=== PATIENT | male | born 1950 | race Caucasian/White ===

== ENCOUNTER 2023-04-10 18:04 | Inpatient (IN) | payer OTHER ==
[~2023-04-10] VITALS: Ht 162.6 cm; Wt 68.5 kg
--- NOTE | 2023-04-10 18:30 | NUR ---
PATIENT INCREASINGLY AGITATED. WALKING AROUND
[2023-04-10] MEDS ORDERED: diphenhydrAMINE HCL 50 MG/ML VIAL ONE (18:38)
[2023-04-10] MEDS ORDERED: OLANZAPINE 10 MG VIAL IM ONE ×2 (18:39→19:00)
[2023-04-10] MEDS ORDERED: diphenhydrAMINE HCL 50 MG/ML VIAL IM ONE (19:00)
--- NOTE | 2023-04-10 19:15 | NUR ---
COVID SWAB DONE AND SENT TO LAB
--- NOTE | 2023-04-10 19:35 | NUR ---
PT NOTED TO BE VERY HARD OF HEARING. 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
[2023-04-10 19:39] LABS: BASOPHILS # (AUTO) 0.1 K/uL (0.0-0.2); BASOPHILS % (AUTO) 0.8 % (0.0-2.0); EOSINOPHILS % (AUTO) 2.9 % (0.0-6.0); HEMATOCRIT 45 % (39-51); LYMPHOCYTES # (AUTO) 1.8 K/uL (0.8-4.8); LYMPHOCYTES % (AUTO) 21.9 % (20.0-44.0); MEAN CORPUSCULAR HGB CONC 33 g/dl (31.0-36.0); MEAN CORPUSCULAR VOLUME 92 fL (80-96); MONOCYTES # (AUTO) 0.7 K/uL (0.1-1.30); MONOCYTES % (AUTO) 8.8 % (2.0-12.0); NEUTROPHILS # (AUTO) 5.4 K/uL (1.8-8.9); NEUTROPHILS % (AUTO) 65.6 % (43.0-81.0); PLATELET COUNT (AUTO) 233 K/uL (150-450); RED BLOOD CELL COUNT(AUTO) 4.89 MIL/uL (4.5-6.0); WHITE BLOOD COUNT (AUTO) 8.2 K/uL (4.3-11.0)
[2023-04-10 19:46] LABS: CARBON DIOXIDE 26 mmol/L (21-32); CHLORIDE 104 mmol/L (98-107); GLUCOSE 97 mg/dL (74-106); POTASSIUM 4.1 mmol/L (3.5-5.1); SODIUM SERUM 137 mmol/L (136-145); UREA NITROGEN, BLOOD 17 mg/dL (7-18)
--- NOTE | 2023-04-10 20:55 | NUR ---
URINE SAMPLE COLLECTED AND SENT TO LAB
[2023-04-10 21:51] LABS: BILIRUBIN,URINE NEGATIVE (NEGATIVE); COLOR,URINE YELLOW (YELLOW); LEUKOCYTE ESTERASE ,URINE NEGATIVE (NEGATIVE); NITRITE, URINE NEGATIVE (NEGATIVE); PH,URINE 6.5 (5.0-8.0); PROTEIN,URINE NEGATIVE (NEGATIVE); UGLUCOSE NEGATIVE (NEGATIVE); UROBILINOGEN,URINE 0.2 EU/dL (0.2)
[2023-04-10 22:59] LABS: ALBUMIN 3.7 g/dL (3.4-5.0); ALKALINE PHOSPHATASE 94 U/L (46-116); TOTAL PROTEIN, SERUM 7.3 g/dL (6.4-8.2)
[2023-04-10 23:55] LABS: BILIRUBIN,TOTAL 0.2 mg/dL (0.2-1.0)
[2023-04-10 23:56] LABS: ALANINE AMINOTRANSFERASE 14 U/L (12-78); ALCOHOL, BLOOD < 3 mg/dL (0-0); ASPARTATE AMINOTRANSFERASE 27 U/L (15-37)
[2023-04-11] MEDS ORDERED: HALOPERIDOL LACTATE INJ 5 MG/ML VIAL IM ONE (00:30)
[2023-04-11] MEDS ORDERED: LORAZEPAM INJ 2 MG/ML VIAL IM ONE ×3 (00:30→12:30)
[2023-04-11] MEDS ORDERED: HALOPERIDOL LACTATE INJ 5 MG/ML VIAL ONE (00:42)
[2023-04-11] MEDS ORDERED: LORAZEPAM INJ 2 MG/ML VIAL ONE ×3 (00:43→12:30)
--- NOTE | 2023-04-11 07:40 | NUR ---
Patient AOx4, able to express his concerns. patient is in bed, sleeping easily aroused, no signs of distress. Discussed plan of care, patient verbalized agreement. All safety precautions taken.
--- NOTE | 2023-04-11 08:10 | NUR ---
Misael Kianna/ [phone]. l/m to call back.
--- NOTE | 2023-04-11 08:43 | NUR ---
GEOMETRICIAN AT BED SIDE
--- NOTE | 2023-04-11 09:40 | NUR ---
SW Consult: SW attempted to meet with patient. Patient appeared alert and oriented x2 (self,place). Pt appeared irritable and agitated. He was uncooperative with this health technical writer and was yelling stating that he would want to return back home to his Kianna ([phone]). He was restricted with his answers and stated "I do not give you further information". SW contacted pt's Kianna ([phone]) to gather collateral and had concerns of pt to return back home and feels unsafe due to his behavior. SW attempted to speak to further about dc plan and she was agitated yelling. SW will discuss with treatment team.
--- NOTE | 2023-04-11 12:24 | NUR ---
CALLED NURSING SUP REGARDING PT BED
--- NOTE | 2023-04-11 12:48 | NUR ---
Patient AOx3, able to express his concerns. Patient states he wants to go home with his . Discussed plan of care, patient verbalized agreement, states he will go back to sleep, to wake him up if comes by.
[2023-04-11] MEDS ORDERED: MEMA5TAB42 PO (13:55)
[2023-04-11] MEDS ORDERED: QUET50TA79 PO (13:55)
[2023-04-11] MEDS ORDERED: DONE10TA44 PO (13:55)
[2023-04-11] MEDS ORDERED: BUSP10TA3 PO (13:55)
--- NOTE | 2023-04-11 14:21 | NUR ---
ROOM 213 A
[2023-04-11] MEDS ORDERED: ESCI10TA PO (14:23)
--- NOTE | 2023-04-11 15:16 | NUR ---
REPORT GIVEN TO NURSE YOU FOR GRAY
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
--- NOTE | 2023-04-11 15:51 | NUR ---
LIZZIE Initial Discharge Note: Patient currently resides at home with located at [address] [place] [address]; ([phone]). LIZZIE will contact pt's Kianna ([phone]) to discuss treatment/discharge plan. LIZZIE will work with the MD, family, and treatment team.
--- NOTE | 2023-04-11 15:51 | NUR ---
Treatment Plan: Pt unable to comprehend and refused to sign.
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
[2023-04-11 16:00] VITALS: BP 145/79
[2023-04-11] MEDS ORDERED: TEMAZEPAM 7.5 MG CAPSULE PO PRN (16:00)
[2023-04-11] MEDS ORDERED: MAGNESIUM HYDROXIDE 30 ML UDC PO PRN (16:00)
[2023-04-11] MEDS ORDERED: ACETAMINOPHEN 325 MG TABLET PO PRN (16:00)
[2023-04-11] MEDS ORDERED: BLOOD SUGAR DIAGNOSTIC 1 EACH STRIP IN ONE (16:00)
[2023-04-11] MEDS ORDERED: MAG HYDROX/AL HYDROX/SIMETH 30 ML UDC PO PRN (16:00)
--- NOTE | 2023-04-11 16:25 | NUR ---
RN- NOTES SPOKE TO MONICA RUBIO, AND DAUGHTER ELIOT MACHUCA ([phone]) ABOUT PATIENT ADMISSION TO [facility]. ALL QUESTIONS ANSWERED AND INFORMATION PROVIDED. WILL BRING POA PAPERWORK TOMORROW.
--- NOTE | 2023-04-11 18:36 | NUR ---
RN CLOSING NOTES PT SLEEPING IN BED. WENT TO RESTROOM ONCE. DID NOT EAT DINNER. AMBULATORY WITH UNSTEADY GAIT. BREATHING EVEN AND NONLABORED. ALERT/ORIENTED X2, GUARDED, SUSPICIOUS, ANXIOUS. DENIES SI/HI AT THIS TIME. WILL CONTINUE TO MONITOR Q 15 MINUTES FOR SAFETY AND BEHAVIOR. FALL SAFETY MEASURES IN PLACED. WILL ENDORSE TO NEXT SHIFT.
--- NOTE | 2023-04-11 19:34 | NUR ---
EMPLOYMENT SERVICE SPECIALIST NOTE: RECEIVED PATIENT ASLEEP IN BED.BREATHING NON-LABORED WITH EQUAL RISE AND FALL OF THE CHEST.RESIDENT IS DISPLAYING NO S/S OF APPARENT DISTRESS. PATIENT IS ALERT AND ORIENTED X2,GUARDED, SUSPICIOUS,ANXIOUS. DENIES SI/HI AT THIS TIME. NO C/O PAIN OR DISCOMFORT.ALL NEEDS ANTICIPATED AND ATTENDED TO. WILL CONTINUE TO MONITOR [id number] FOR SAFETY AND BEHAVIOR WITH THE HELP OF THE STAFF. FALL SAFETY PRECAUTION IN PLACED. BED IN LOWEST,LOCKED POSITION WITH SIDERAILS UP X2.
[2023-04-11 19:40] VITALS: BP 138/69
[2023-04-12] MEDS: clonazePAM 0.5 MG TABLET PO PRN ×3 (07:55→19:39)
--- NOTE | 2023-04-12 07:56 | NUR ---
RN-NOTES NOTED PATIENT PACING IN AND OUT IN HIS ROOM FOCUS ON GOING HOME,AGITATED WHEN REDIRECTED, AND KLONOPIN 0.5MG P.O GIVEN PRN ORDER. WILL CONT. MONITORING FOR SAFETY AND BEHAVIOR.
[2023-04-12 08:00] VITALS: BP 132/76
--- NOTE | 2023-04-12 09:46 | NUR ---
RN-NOTES PATIENT NOTED PACING IN THE HALLWAY,VERY ANXIOUS, SCREAMING AND YELLING AT STAFF FOCUS ON GOING HOME.REDIRECTED PATIENT BUT PATIENT GETS AGITATED. DR. FIERRO MADE AWARE WITH T.O ORDER OF ZYPREXA 10MG IM ONCE. NOTED AND CARRIED OUT.
[2023-04-12] MEDS ORDERED: OLANZAPINE 10 MG VIAL IM ONE (10:00)
--- NOTE | 2023-04-12 12:17 | NUR ---
LIZZIE Family Contact: LIZZIE spoke with pt's Kianna ([phone]) and daughter in law Cee ([phone]). Kianna is the DPOA and will drop of the documents today. Both shared that pt has been dx with Alzheimer and it has been two years of his dx. They stated that pt has been undermedicated by his psych. He has been aggressive and this has been his first episode. Pt has history of drug abuse. He has been smoking marijuana, opiates, alcohol, and has been using mushrooms. Ideally, they would want the pt to stay at the hospital 14 days to be stabilized before coming back home or they would want pt to go to a nursing facility. LIZZIE explained that pt's insurance might not approve this but this bond underwriter will attempt with insurance and if this does not work LZIZIE will provide options. Addendum: 04/12/23 at 1220 by LIZZIE KENDRICK LIZZIE shared this information with Dr. Carney. Family requested for Dr. Carney to contact.
--- NOTE | 2023-04-12 12:19 | NUR ---
UR CONTACT: SW contacted pt's case advocate Sharon ([phone]) to request auth and requested if she may be able to help with placement. SW waiting for a call back.
--- NOTE | 2023-04-12 12:21 | NUR ---
Social Work Note/Substance Abuse Intervention: Patient was provided with a brief substance abuse intervention and referred to [facility] ([phone]), [facility] ([phone]), and [facility] ([phone]) for drinking alcohol, abuse opiates, mushrooms, and marijuana.
--- NOTE | 2023-04-12 12:34 | NUR ---
RN-NOTES PATIENT IS VERY ANXIOUS, SCREAMING AND YELLING BANGING HIS BOTH HANDS ON THE TABLE WANTED TO GO HOME.REDIRECTED PATIENT ,KLONOPIN 0.5MG P.O GIVEN PRN ORDER
[2023-04-12] MEDS ORDERED: QUETIAPINE FUMARATE 25 MG TABLET PO SCH (13:30)
--- NOTE | 2023-04-12 13:41 | NUR ---
RN-NOTES RECEIVED T.O ORDER FROM DR. MACIAS TO D/C SEROCECILLEL ORDER AND ORDERED ZYPREXA 2.5MG P.O BID. ALSO ORDERED FAMILY CAN VISIT OUTSIDE VISITING HOURS. NOTED AND CARRIED OUT.
[2023-04-12] MEDS: DIVALPROEX SODIUM 125 MG CAP.SPRINK PO SCH ×2 (14:04→16:43)
--- NOTE | 2023-04-12 15:29 | NUR ---
UR CONTACT: Per intake, pt authorized until Sunday 04/15 and will require clinicals sent on 04/15. JOHN VERDIN P:[phone] F:[phone] LIZZIE left a detailed voicemail to help with placement.
[2023-04-12] MEDS: OLANZAPINE 2.5 MG TABLET PO SCH (16:43)
[2023-04-12] MEDS: MEMANTINE HCL 5 MG TABLET PO SCH (17:11)
[2023-04-12] MEDS: DONEPEZIL 5 MG TABLET PO SCH (17:11)
--- NOTE | 2023-04-12 18:03 | NUR ---
RN-NOTES PATIENT IS VISIBLE IN THE UNIT A/OX1 EPISODE OF PACING IN THE HALLWAY ,FOCUS ON GOING HOME,CONFUSED,DISORIENTED ,NEEDS FREQUENT REDIRECTIONS AND REORIENTATION. PATIENT IS EASILY ANGRY AND IRRITABLE. COMPLIANT WITH MEDICATIONS. AMBULATORY WITH STEADY GAIT.ALL NEEDS ATTENDED AND ANTICIPATED. WILL CONT. MONITORING FOR SAFETY AND BEHAVIOR. WILL ENDORSE TO INCOMING SHIFT FOR CONTINUITY OF CARE.
--- NOTE | 2023-04-12 19:40 | NUR ---
RN NOTES: ANXIETY PT.ANXIOUS RESTLESS PARANOID,HYPERVERBAL,YELLING SCREAMING NONREDIRECTABLE NEEDS FREQUENTLY REDIECTIONS, PRN KLNOPIN 0.5 MG PO GIVEN PER PT. REQUEST,WILL CONTINUE TO MONITOR.
[2023-04-12 20:00] VITALS: BP 130/74
--- NOTE | 2023-04-12 20:29 | NUR ---
RN NOTES :PATIENT WALKING AROUND THE UNIT,AWAKE ALERT A/OX1-2 . NO S/SX OF ACUTE DISTRESS NOTED ,CONFUSED, FORGETFUL ,DISHELVED,PARNOID ,ANXIOUS, EASILY AGITATED,HYPERVERBAL,YELLING LOUD , DELUSIONAL , COOPERTIVE/UNCOOPERTIVE AT TIMES, PARANOID ,NEEDS FREQUENTLY REDIRECTIONS, ENCOURAGED TO VERBALIZED ANY FEELING OR CONCERN ,SAFETY PRECAUTIONS MAINTAINED. WILL CONTINUE TO MONITOR Q15MIN ROUNDS FOR SAFETY.
[2023-04-13] MEDS: clonazePAM 0.5 MG TABLET PO PRN (07:55)
--- NOTE | 2023-04-13 07:55 | NUR ---
RN-NOTES NOTED PATIENT PACING IN AND OUT IN HIS ROOM YELLING FOCUS ON GOING HOME,AGITATED WHEN REDIRECTED, AND KLONOPIN 0.5MG P.O GIVEN PRN ORDER. WILL CONT. MONITORING FOR SAFETY AND BEHAVIOR.
[2023-04-13 08:00] VITALS: BP 130/76
[2023-04-13] MEDS: OLANZAPINE 2.5 MG TABLET PO SCH ×2 (08:25→16:40)
[2023-04-13] MEDS: DIVALPROEX SODIUM 125 MG CAP.SPRINK PO SCH ×3 (08:25→16:40)
--- NOTE | 2023-04-13 09:20 | NUR ---
RN-NOTES RECEIVED T.PO ORDER FROM DR. MACIAS TO CHANGE KLONOPIN 0.5MG DOSE TO 1MG P.O Q4HR PRN. NOTED AND CARRIED OUT.
[2023-04-13] MEDS ORDERED: clonazePAM 1 MG TABLET PO PRN (09:30)
--- NOTE | 2023-04-13 11:45 | NUR ---
RN-NOTES NOTED PATIENT VERY ANXIOUS,YELLING AND BANGING TABLES WITH BOTH HAND,STATED " I WANT TO GO HOME TO MY " REDIRECTED AND REASSURED PATIENT . KLONOPIN 1MG P.O GIVEN PRN ORDER. WILL CONT. MONITORING FOR SAFETY AND BEHAVIOR.
--- NOTE | 2023-04-13 12:45 | NUR ---
RN-NOTES PATIENT IN THE DAY ROOM PARTICIPATING WITH THE GROUP ACTIVITIES,CALM,NO ACUTE DISTRESS NOTED.
[2023-04-13 16:00] VITALS: BP 129/74
[2023-04-13] MEDS: MEMANTINE HCL 5 MG TABLET PO SCH (17:21)
[2023-04-13] MEDS: DONEPEZIL 5 MG TABLET PO SCH (17:21)
--- NOTE | 2023-04-13 19:39 | NUR ---
RN NOTES :PATIENT RESTING IN ROOM, AND FREQUENTLY COMING BACK TO NURSE STATION KEEP ASKING WHEN I AM GOING TO HOME ,REDIRECT PATIENT BUT PT.A/OX1 ,CONFUSED, FORGETFUL ,DISHELVED,PARNOID ,ANXIOUS, EASILY AGITATED,HYPERVERBAL,YELLING LOUD , DELUSIONAL , COOPERTIVE/UNCOOPERTIVE AT TIMES,NEEDS FREQUENTLY REDIRECTIONS, ENCOURAGED TO VERBALIZED ANY FEELING OR CONCERN ,SAFETY PRECAUTIONS MAINTAINED. WILL CONTINUE TO MONITOR Q15MIN ROUNDS FOR SAFETY.
[2023-04-13 20:00] VITALS: BP 142/71
--- NOTE | 2023-04-14 07:23 | NUR ---
RN NOTES: REFUSED SHOWER AND SKIN ASSESSMENT PT. REFUSED FULL BODY SKIN ASSESSMENT, PHOTOS TAKEN AND PT.REFUSED SHOWER ,CHANGING TO THE HOSPITAL GOWN , PT.BEHAVIOR VERY UNCOOPERATIVE PARANOID, AGGRESSIVE , UNPERDICTABLE AT THIS TIME . PER PT. STATES LIVE ME ALONE .I AM OK .
[2023-04-14 08:00] VITALS: BP 155/87
[2023-04-14] MEDS: DIVALPROEX SODIUM 125 MG CAP.SPRINK PO SCH ×3 (08:12→17:07)
[2023-04-14] MEDS: OLANZAPINE 2.5 MG TABLET PO SCH ×2 (08:12→17:07)
[2023-04-14 16:00] VITALS: BP 161/80
[2023-04-14] MEDS: MEMANTINE HCL 5 MG TABLET PO SCH (17:07)
[2023-04-14] MEDS: DONEPEZIL 5 MG TABLET PO SCH (17:07)
--- NOTE | 2023-04-14 18:39 | NUR ---
RN- CLOSING NOTES PATIENT AWAKE, RESTING IN BED, BREATHING EVEN AND NON LABORED WITH NO S/S OF DISTRESS. PATIENT IS COOPERATIVE, GUARDED, ANXIOUS, AGGRESSIVE, RESTLESS, SUSPICIOUS, EASILY AGITATED, ISOLATIVE, AND PERSEVERATING ON GOING HOME. PATIENT IS MEDICATION COMPLIANT. DENIES SI/HI AT THIS TIME. WILL CONTINUE TO MONITOR Q 15 MINUTES FOR SAFETY AND BEHAVIOR.
[2023-04-14 19:31] VITALS: BP 120/71
--- NOTE | 2023-04-15 06:30 | NUR ---
RN- CLOSING NOTES PATIENT ASLEEP IN BED, BREATHING EVEN AND NON LABORED WITH NO S/S OF DISTRESS. PATIENT IS COOPERATIVE, GUARDED, ANXIOUS, SUSPICIOUS, ISOLATIVE, AND PERSEVERATING ON GOING HOME. PATIENT IS MEDICATION COMPLIANT. DENIES SI/HI AT THIS TIME. WILL CONTINUE TO MONITOR Q 15 MINUTES FOR SAFETY AND BEHAVIOR.
[2023-04-15 08:00] VITALS: BP 134/77
[2023-04-15] MEDS: DIVALPROEX SODIUM 125 MG CAP.SPRINK PO SCH ×3 (08:20→17:51)
[2023-04-15] MEDS: OLANZAPINE 2.5 MG TABLET PO SCH ×2 (08:22→17:51)
--- NOTE | 2023-04-15 13:32 | NUR ---
UR CONTACT: Per intake, pt authorized until Saturday. Daily clinicals are to be sent daily. BERENICE VERDIN P:[phone] F:[phone] LIZZIE stated if Berenice can help with placement. She stated that they have contracted facilities for SNF but pt would require physical need and they will not accept him. However, this technical publications writer will go ahead and fax clinicals and Berenice will speak to treatment team if this is possible.
--- NOTE | 2023-04-15 13:53 | NUR ---
LIZZIE Family Contact: LIZZIE spoke with daughter in law Cee ([phone]) who stated that the plan for pt is to return back home when stable. She would want home health services arranged when stable. LIZZIE will contact insurance.
--- NOTE | 2023-04-15 13:54 | NUR ---
UR CONTACT: LIZZIE spoke with VELVET Ng and notified that family is requesting home health services. She stated that she will put in the order. JOHN VERDIN P:[phone] F:[phone]
[2023-04-15 17:21] VITALS: BP 137/59
[2023-04-15] MEDS: DONEPEZIL 5 MG TABLET PO SCH (17:51)
[2023-04-15] MEDS: MEMANTINE HCL 5 MG TABLET PO SCH (17:51)
[2023-04-15 19:36] VITALS: BP 143/52
[2023-04-16 08:00] VITALS: BP 144/58
--- NOTE | 2023-04-16 09:06 | NUR ---
UR CONTACT: LZIZIE sent clinicals to [facility], P: [phone], F: [phone] for home health and stated medical team will reach out to coordinate this with family.
[2023-04-16] MEDS: DIVALPROEX SODIUM 125 MG CAP.SPRINK PO SCH ×3 (09:35→16:46)
[2023-04-16] MEDS: OLANZAPINE 2.5 MG TABLET PO SCH ×2 (09:35→16:46)
--- NOTE | 2023-04-16 09:46 | NUR ---
UR CONTACT: LIZZIE spoke with VELVET Ng and faxed daily clinicals. JOHN VERDIN P:[phone] F:[phone]
[2023-04-16 16:00] VITALS: BP 150/86
[2023-04-16] MEDS: DONEPEZIL 5 MG TABLET PO SCH (17:06)
[2023-04-16] MEDS: MEMANTINE HCL 5 MG TABLET PO SCH (17:06)
--- NOTE | 2023-04-16 18:40 | NUR ---
RN- CLOSING NOTE: BREATHING EVEN AND NON LABORED, PATIENT IS COOPERATIVE, GUARDED, ANXIOUS, SUSPICIOUS, ISOLATIVE, AND PERSEVERATING ON GOING HOME. PATIENT IS MEDICATION COMPLIANT. DENIES SI/HI AT THIS TIME. WILL CONTINUE TO MONITOR Q 15 MINUTES FOR SAFETY AND BEHAVIOR.
[2023-04-16 19:38] VITALS: BP 135/76
[2023-04-17 08:00] VITALS: BP 140/98
--- NOTE | 2023-04-17 08:19 | NUR ---
LIZZIE Discharge Note: Patient will discharge back home located at [address] [place] [address]; ([phone]). Pts son Lan ([phone]) will cone picker pt at 8:30AM. Patients Kianna ([phone]) is aware and agreeable. Patient is alert and oriented x2. Patient denies visual/auditory hallucinations. Patient denies suicidal or homicidal ideation. Patient will follow up with (Telegraph Plant Maintainer) Dr. Yeager located [address] [place] [address] . Patient will follow up with Neurologist Dr. [place] [address] [facility] [address], [place] [address] . Insurance medical team will coordinate appointments. LIZZIE sent clinicals to [facility] insurance CM, P: [phone], F: [phone] for home health and stated medical team will reach out to coordinate this with family.
[2023-04-17] MEDS: DIVALPROEX SODIUM 125 MG CAP.SPRINK PO SCH (09:11)
[2023-04-17] MEDS: OLANZAPINE 2.5 MG TABLET PO SCH (09:11)
--- NOTE | 2023-04-17 09:30 | NUR ---
RN- DISCHARGE NOTES PATIENT DISCHARGED HOME IN STABLE CONDITION. COMPLIANT WITH MEDICATIONS AND COOPERATIVE WITH TREATMENT PLANS. PATIENT DENIES SUICIDAL/HOMICIDAL IDEATION AND AUDITORY/VISUAL HALLUCINATIONS. BEHAVIOR IMPROVED, PSYCHIATRIC TREATMENT PLANS MET, MEDICAL TREATMENT PLANS DEFERRED FOR CONTINUAL MONITORING. EDUCATED PATIENT ABOUT AFTER CARE PLAN AND COPY PROVIDED. RETURNED ALL PERSONAL BELONGINGS TO PATIENT. MEDICATIONS RECONCILED WITH PSYCHIATRIST DR. GALDAMEZ, WORKING ALONG SIDE DR. MACIAS, AND MED MORTGAGE PROCESSING CLERK DR. CLARK. PSYCHIATRIST ORDER TO DISCONTINUE HOLD AND DISCHARGE HOME COMPLETED. PATIENT SIGNED DISCHARGE PAPERWORK BUT REFUSED SKIN PHOTOS. PATIENT LEFT THE UNIT AT 0930, WITHOUT DISTRESS, CALM, COOPERATIVE, AND INFORMATION/PRESCRIPTIONS GIVEN TO MONICA RUBIO. PATIENT LEFT VIA CAR.
== END 2023-04-17 09:30 | disposition home or self-care (01) | DRG 885 ==
LOC: ER 18:06 → GPS 04-11 15:19
PROVIDERS: ADMIT Psychiatry & Neurology Psychiatry; ATTEND Internal Medicine
DX: F29 Unspecified psychosis not due to a substance or known physiological condition (principal); F02.84 Dementia in other diseases classified elsewhere, unspecified severity, with anxiety; F02.811 Dementia in other diseases classified elsewhere, unspecified severity, with agitation; F02.83 Dementia in other diseases classified elsewhere, unspecified severity, with mood disturbance; F02.82 Dementia in other diseases classified elsewhere, unspecified severity, with psychotic disturbance; G30.9 Alzheimer's disease, unspecified; G47.00 Insomnia, unspecified; Z82.0 Family history of epilepsy and other diseases of the nervous system; Z91.52 Personal history of nonsuicidal self-harm
CPT/HCPCS: 36415; 80048-TC; 80076-TC; 80164-TC; 85025-TC; 87081-TC; 97116-TC; 97530-TC; C9803; G0480; J1200; J1630; J2060; J3490

== ENCOUNTER 2023-07-23 03:24 | Inpatient (IN) | payer MEDICARE, OTHER ==
[~2023-07-23] VITALS: Ht 170.2 cm; Wt 70.3 kg
[~2023-07-23 03:24] MED LIST: BUSP10TA3 PO; DONE10TA44 PO; ESCI10TA PO; MEMA5TAB42 PO; QUET50TA79 PO
[2023-07-23] MEDS ORDERED: LORAZEPAM INJ 2 MG/ML VIAL ONE (04:06)
[2023-07-23] MEDS ORDERED: LORAZEPAM INJ 2 MG/ML VIAL IM ONE (04:30)
[2023-07-23 05:56] LABS: BASOPHILS % (AUTO) 0.4 % (0.0-2.0); HEMATOCRIT 43 % (39-51); HEMOGLOBIN 14.5 g/dL (13.5-17.5); LYMPHOCYTES # (AUTO) 0.3 K/uL (0.8-4.8); LYMPHOCYTES % (AUTO) 4.9 % (20.0-44.0); MEAN CORPUSCULAR HEMOGLOBIN 30 PG (26.0-33.0); MEAN CORPUSCULAR HGB CONC 34 g/dl (31.0-36.0); MEAN CORPUSCULAR VOLUME 88 fL (80-96); MONOCYTES # (AUTO) 1.2 K/uL (0.1-1.30); MONOCYTES % (AUTO) 19.1 % (2.0-12.0); NEUTROPHILS # (AUTO) 4.6 K/uL (1.8-8.9); NEUTROPHILS % (AUTO) 75.6 % (43.0-81.0); PLATELET COUNT (AUTO) 155 K/uL (150-450); RED BLOOD CELL COUNT(AUTO) 4.89 MIL/uL (4.5-6.0); RED CELL DISTRIBUTION WIDTH 12.7 % (11.5-15.0); WHITE BLOOD COUNT (AUTO) 6.1 K/uL (4.3-11.0)
[2023-07-23 06:04] LABS: CALCIUM, SERUM 8.7 mg/dL (8.5-10.1); CARBON DIOXIDE 25 mmol/L (21-32); CHLORIDE 100 mmol/L (98-107); CREATININE 1.2 mg/dL (0.6-1.3); GLUCOSE 97 mg/dL (74-106); SODIUM SERUM 136 mmol/L (136-145); UREA NITROGEN, BLOOD 23 mg/dL (7-18)
[2023-07-23 06:09] LABS: ALANINE AMINOTRANSFERASE 11 U/L (12-78); ALBUMIN 3.2 g/dL (3.4-5.0); ALKALINE PHOSPHATASE 84 U/L (46-116); ASPARTATE AMINOTRANSFERASE 22 U/L (15-37); BILIRUBIN,DIRECT 0.1 mg/dL (0.0-0.2); BILIRUBIN,TOTAL 0.4 mg/dL (0.2-1.0)
[2023-07-23 06:10] LABS: ACETAMINOPHEN <10 ug/ml (10-30); ALCOHOL, BLOOD < 3 mg/dL (0-10); SALICYLATE < 2.3 mg/dL (2.8-20.0)
[2023-07-23 06:34] LABS: ANISOCYTOSIS 1+; LYMPHOCYTES % (MANUAL) 5 % (16-48); MONOCYTES % (MANUAL) 15 % (0-11.0); NEUTROPHILS % (MANUAL) 80 (42-76)
[2023-07-23] MEDS ORDERED: DIVA125C2 PO (10:12)
[2023-07-23] MEDS ORDERED: OLAN5TAB3 PO (10:12)
[2023-07-23] MEDS ORDERED: ONDANSETRON HCL/PF 4 MG/2 ML VIAL IVP PRN (10:30)
[2023-07-23] MEDS ORDERED: hydrALAZINE HCL IV 20 MG VIAL IV PRN (10:30)
[2023-07-23] MEDS ORDERED: MORPHINE SULFATE INJ 2 MG/ML DISP.SYRIN IV PRN (10:30)
[2023-07-23] MEDS ORDERED: ACETAMINOPHEN 325 MG TABLET PO PRN (10:30)
[2023-07-23 12:00] VITALS: BP 135/83; TEMP 101; O2SAT 92
[2023-07-23 12:24] LABS: APPEARANCE,URINE CLEAR (CLEAR); BILIRUBIN,URINE NEGATIVE (NEGATIVE); BLOOD, URINE 1+ Ery/uL (NEGATIVE); COLOR,URINE YELLOW (YELLOW); KETONES,URINE 1+ mg/dL (NEGATIVE); LEUKOCYTE ESTERASE ,URINE NEGATIVE (NEGATIVE); NITRITE, URINE NEGATIVE (NEGATIVE); PROTEIN,URINE NEGATIVE (NEGATIVE); UGLUCOSE NEGATIVE (NEGATIVE); UROBILINOGEN,URINE 0.2 EU/dL (0.2)
[2023-07-23] MEDS: IV NS 0.9% 1,000 ML IV SCH (12:30)
[2023-07-23 12:35] LABS: AMPHETAMINE, URINE NEGATIVE (NEGATIVE); BARBITURATE, URINE NEGATIVE (NEGATIVE); BENZODIAZEPINE, URINE NEGATIVE (NEGATIVE); CANNABINOID, URINE NEGATIVE (NEGATIVE); COCCAINE, URINE NEGATIVE (NEGATIVE); OPIATE, URINE NEGATIVE (NEGATIVE); PHENCYCLIDINE SCREEN,URINE NEGATIVE (NEGATIVE)
[2023-07-23] MEDS: DIVALPROEX SODIUM 125 MG CAP.SPRINK PO SCH ×2 (12:39→16:00)
[2023-07-23] MEDS: ACETAMINOPHEN 650 MG/SUPP.RECT RC PRN ×2 (12:40→21:55)
[2023-07-23 12:49] LABS: ADD URINE CULTURE NO; BACTERIA,URINE None seen /HPF (None Seen); SQUAMOUS EPITHELIAL CELL,UR None Seen /HPF (None Seen); WBC,URINE NONE SEEN /HPF (0-3)
[2023-07-23] MEDS: ENOXAPARIN SODIUM 40 MG/0.4 ML DISP.SYRIN SQ SCH (13:33)
[2023-07-23] MEDS ORDERED: Z GUARD REMEDY 4 OZ OINT TP PRN (15:30)
[2023-07-23 16:00] VITALS: BP 111/64; TEMP 98.2; O2SAT 95
[2023-07-23] MEDS: OLANZAPINE 5 MG TABLET PO SCH (16:01)
[2023-07-23] MEDS: DONEPEZIL 5 MG TABLET PO SCH (17:00)
[2023-07-23 20:00] VITALS: BP 120/69; TEMP 103.1; O2SAT 94
[2023-07-23] MEDS ORDERED: CEFEPIME 1 GM VIAL IV SCH (22:30)
[2023-07-23] MEDS ORDERED: CEFEPIME 1 GM VIAL ONE (22:46)
[2023-07-23] MEDS: CEFEPIME 1 GM in IV D5W 50 ML IV SCH (22:54)
[2023-07-24] VITALS: TEMP 102.4; O2SAT 94
[2023-07-24] MEDS: IV NS 0.9% 1,000 ML IV SCH (02:40)
[2023-07-24 04:00] VITALS: BP 107/65; TEMP 100.1; O2SAT 93
[2023-07-24] MEDS: ACETAMINOPHEN 650 MG/SUPP.RECT RC PRN (05:59)
[2023-07-24] MEDS: CEFEPIME 1 GM in IV D5W 50 ML IV SCH ×3 (06:42→21:09)
[2023-07-24 08:00] VITALS: BP 112/69; TEMP 97.9; O2SAT 98
[2023-07-24] MEDS: MEMANTINE HCL 5 MG TABLET PO SCH (09:00)
[2023-07-24] MEDS: DIVALPROEX SODIUM 125 MG CAP.SPRINK PO SCH ×4 (09:00→16:27)
[2023-07-24] MEDS: OLANZAPINE 5 MG TABLET PO SCH (09:00)
[2023-07-24] MEDS: ENOXAPARIN SODIUM 40 MG/0.4 ML DISP.SYRIN SQ SCH (09:45)
[2023-07-24] MEDS ORDERED: OLANZAPINE 10 MG VIAL IM PRN (10:00)
[2023-07-24] MEDS ORDERED: LORAZEPAM 1 MG TABLET PO PRN (10:00)
[2023-07-24] MEDS: OLANZAPINE ZYDIS 5 MG TAB.RAPDIS PO SCH ×2 (10:23→16:27)
[2023-07-24] MEDS ORDERED: ALBUTEROL FS 2.5 MG/0.5 ML VIAL.NEB NEB PRN (12:00)
[2023-07-24] MEDS ORDERED: IPRATROPIUM/ALBUTEROL INHALER IH SCH (12:00)
[2023-07-24 13:42] LABS: BILIRUBIN,TOTAL 0.4 mg/dL (0.2-1.0); CALCIUM, SERUM 8.6 mg/dL (8.5-10.1); CREATININE 1.3 mg/dL (0.6-1.3); POTASSIUM 4.2 mmol/L (3.5-5.1); TOTAL PROTEIN, SERUM 7.3 g/dL (6.4-8.2)
[2023-07-24] MEDS ORDERED: VANCOMYCIN 1 GM in IV D5W 250ml IV ONE (14:00)
[2023-07-24 16:00] VITALS: BP 127/65; TEMP 98.8; O2SAT 99
[2023-07-24] MEDS: DONEPEZIL 5 MG TABLET PO SCH (18:00)
[2023-07-24] MEDS: IPRATROPIUM BROMIDE 14 GM INHALER (or 12.9 GM) IH SCH (22:46)
[2023-07-24] MEDS: ALBUTEROL SULFATE 8 GM HFA.AER.AD IH SCH (22:48)
[2023-07-25 00:06] VITALS: BP 144/69; TEMP 97.8; O2SAT 99
[2023-07-25] MEDS: IPRATROPIUM BROMIDE 14 GM INHALER (or 12.9 GM) IH SCH ×4 (01:13→20:29)
[2023-07-25] MEDS: ALBUTEROL SULFATE 8 GM HFA.AER.AD IH SCH ×4 (01:14→20:29)
[2023-07-25] MEDS: VANCOMYCIN HCL 0.75 GM in IV D5W 250 ML IV SCH ×2 (02:20→14:13)
[2023-07-25] MEDS: CEFEPIME 1 GM in IV D5W 50 ML IV SCH ×3 (05:05→20:30)
[2023-07-25 07:34] LABS: CALCIUM, SERUM 8.5 mg/dL (8.5-10.1); CARBON DIOXIDE 24 mmol/L (21-32); CHLORIDE 102 mmol/L (98-107); CREATININE 0.8 mg/dL (0.6-1.3); GLUCOSE 90 mg/dL (74-106); SODIUM SERUM 135 mmol/L (136-145); UREA NITROGEN, BLOOD 19 mg/dL (7-18)
[2023-07-25 08:00] VITALS: BP 144/69; TEMP 97.8; TEMP 98.5; O2SAT 99
[2023-07-25 08:05] LABS: BASOPHILS % (AUTO) 0.6 % (0.0-2.0); EOSINOPHILS % (AUTO) 0.1 % (0.0-6.0); HEMATOCRIT 46 % (39-51); HEMOGLOBIN 15.3 g/dL (13.5-17.5); LYMPHOCYTES # (AUTO) 1.2 K/uL (0.8-4.8); LYMPHOCYTES % (AUTO) 18.2 % (20.0-44.0); MEAN CORPUSCULAR HEMOGLOBIN 30 PG (26.0-33.0); MEAN CORPUSCULAR HGB CONC 33 g/dl (31.0-36.0); MEAN CORPUSCULAR VOLUME 89 fL (80-96); MONOCYTES # (AUTO) 0.7 K/uL (0.1-1.30); MONOCYTES % (AUTO) 11.4 % (2.0-12.0); NEUTROPHILS # (AUTO) 4.6 K/uL (1.8-8.9); NEUTROPHILS % (AUTO) 69.7 % (43.0-81.0); PLATELET COUNT (AUTO) 121 K/uL (150-450); RED BLOOD CELL COUNT(AUTO) 5.18 MIL/uL (4.5-6.0); RED CELL DISTRIBUTION WIDTH 13.2 % (11.5-15.0); WHITE BLOOD COUNT (AUTO) 6.5 K/uL (4.3-11.0)
[2023-07-25] MEDS: ENOXAPARIN SODIUM 40 MG/0.4 ML DISP.SYRIN SQ SCH (10:30)
[2023-07-25] MEDS: MEMANTINE HCL 5 MG TABLET PO SCH (10:43)
[2023-07-25] MEDS: DIVALPROEX SODIUM 125 MG CAP.SPRINK PO SCH ×3 (10:44→17:06)
[2023-07-25] MEDS: OLANZAPINE ZYDIS 5 MG TAB.RAPDIS PO SCH ×2 (10:44→17:06)
[2023-07-25] MEDS: CLOTRIMAZOLE 1% 15 GM TUBE TP SCH ×2 (11:24→17:07)
[2023-07-25] MEDS: PROSOURCE / PROSTAT (PYXIS) 30 ML UDC PO SCH ×2 (13:24→17:07)
[2023-07-25 16:00] VITALS: BP 149/66; TEMP 98.9; O2SAT 95
[2023-07-25] MEDS: DONEPEZIL 5 MG TABLET PO SCH (17:06)
[2023-07-25 20:00] VITALS: BP 120/57; TEMP 100; O2SAT 95
[2023-07-26] VITALS: BP 147/68; TEMP 100.2; O2SAT 96
[2023-07-26] MEDS ORDERED: VANCOMYCIN 1 GM in IV D5W 250ml IV SCH (02:00)
[2023-07-26] MEDS: VANCOMYCIN HCL 0.75 GM in IV D5W 250 ML IV SCH (03:07)
[2023-07-26] MEDS: IPRATROPIUM BROMIDE 14 GM INHALER (or 12.9 GM) IH SCH ×4 (03:36→18:39)
[2023-07-26] MEDS: ALBUTEROL SULFATE 8 GM HFA.AER.AD IH SCH ×4 (03:37→18:40)
[2023-07-26] MEDS: CEFEPIME 1 GM in IV D5W 50 ML IV SCH ×3 (04:36→20:06)
[2023-07-26] MEDS ORDERED: DOXY-326 PO (06:44)
[2023-07-26] MEDS ORDERED: AMOX-430 PO (06:44)
[2023-07-26 08:00] VITALS: BP 111/67; TEMP 98.8; O2SAT 81
[2023-07-26 08:02] LABS: CALCIUM, SERUM 8.1 mg/dL (8.5-10.1); CARBON DIOXIDE 27 mmol/L (21-32); CHLORIDE 100 mmol/L (98-107); CREATININE 0.9 mg/dL (0.6-1.3); GLUCOSE 100 mg/dL (74-106); POTASSIUM 3.8 mmol/L (3.5-5.1); SODIUM SERUM 136 mmol/L (136-145); UREA NITROGEN, BLOOD 16 mg/dL (7-18)
[2023-07-26] MEDS: MEMANTINE HCL 5 MG TABLET PO SCH (08:48)
[2023-07-26] MEDS: OLANZAPINE ZYDIS 5 MG TAB.RAPDIS PO SCH ×2 (08:48→16:35)
[2023-07-26] MEDS: DIVALPROEX SODIUM 125 MG CAP.SPRINK PO SCH ×3 (08:48→16:34)
[2023-07-26] MEDS: dexaMETHasone SOD PHOSPHATE 10 MG/ML VIAL IV SCH (08:49)
[2023-07-26] MEDS: PROSOURCE / PROSTAT (PYXIS) 30 ML UDC PO SCH ×3 (09:08→16:34)
[2023-07-26] MEDS: CLOTRIMAZOLE 1% 15 GM TUBE TP SCH ×2 (09:10→16:35)
[2023-07-26] MEDS: ENOXAPARIN SODIUM 40 MG/0.4 ML DISP.SYRIN SQ SCH (10:33)
[2023-07-26] MEDS: VANCOMYCIN 0.75 GM in IV D5W 250 ML IV SCH ×2 (13:16→20:55)
[2023-07-26 16:00] VITALS: BP 102/63; TEMP 98.5; O2SAT 95
[2023-07-26] MEDS: DONEPEZIL 5 MG TABLET PO SCH (18:00)
[2023-07-26 20:00] VITALS: BP 94/66; TEMP 98.2; O2SAT 96
[2023-07-27] MEDS: ALBUTEROL SULFATE 8 GM HFA.AER.AD IH SCH ×4 (01:54→19:30)
[2023-07-27] MEDS: IPRATROPIUM BROMIDE 14 GM INHALER (or 12.9 GM) IH SCH ×4 (01:54→19:30)
[2023-07-27 04:00] VITALS: BP 109/89; TEMP 98; O2SAT 96
[2023-07-27] MEDS: CEFEPIME 1 GM in IV D5W 50 ML IV SCH ×3 (04:18→21:49)
[2023-07-27] MEDS: VANCOMYCIN 0.75 GM in IV D5W 250 ML IV SCH ×3 (04:54→21:52)
[2023-07-27 07:14] LABS: POTASSIUM 4.1 mmol/L (3.5-5.1)
[2023-07-27] MEDS: MEMANTINE HCL 5 MG TABLET PO SCH (09:17)
[2023-07-27] MEDS: dexaMETHasone SOD PHOSPHATE 10 MG/ML VIAL IV SCH (09:17)
[2023-07-27] MEDS: CLOTRIMAZOLE 1% 15 GM TUBE TP SCH ×2 (09:17→16:37)
[2023-07-27] MEDS: OLANZAPINE ZYDIS 5 MG TAB.RAPDIS PO SCH ×2 (09:17→16:37)
[2023-07-27] MEDS: PROSOURCE / PROSTAT (PYXIS) 30 ML UDC PO SCH ×3 (09:17→16:36)
[2023-07-27] MEDS: DIVALPROEX SODIUM 125 MG CAP.SPRINK PO SCH ×3 (09:17→16:34)
[2023-07-27] MEDS: ENOXAPARIN SODIUM 40 MG/0.4 ML DISP.SYRIN SQ SCH (09:36)
[2023-07-27 12:00] VITALS: BP 126/89; TEMP 98.2; O2SAT 96
[2023-07-27] MEDS: ENSURE ENLIVE CHOC 237 ML CAN PO SCH (16:35)
[2023-07-27] MEDS: DONEPEZIL 5 MG TABLET PO SCH (17:06)
[2023-07-27 20:00] VITALS: BP 152/97; TEMP 97.5; O2SAT 95
[2023-07-28] MEDS: ALBUTEROL SULFATE 8 GM HFA.AER.AD IH SCH ×2 (00:49→10:33)
[2023-07-28] MEDS: IPRATROPIUM BROMIDE 14 GM INHALER (or 12.9 GM) IH SCH ×2 (00:49→10:33)
[2023-07-28] MEDS: CEFEPIME 1 GM in IV D5W 50 ML IV SCH (04:19)
[2023-07-28] MEDS: VANCOMYCIN 0.75 GM in IV D5W 250 ML IV SCH (04:49)
[2023-07-28 06:23] LABS: BASOPHILS % (AUTO) 0.1 % (0.0-2.0); HEMATOCRIT 48 % (39-51); LYMPHOCYTES # (AUTO) 0.8 K/uL (0.8-4.8); LYMPHOCYTES % (AUTO) 9.7 % (20.0-44.0); MEAN CORPUSCULAR HEMOGLOBIN 30 PG (26.0-33.0); MEAN CORPUSCULAR HGB CONC 34 g/dl (31.0-36.0); MEAN CORPUSCULAR VOLUME 89 fL (80-96); MONOCYTES # (AUTO) 1.2 K/uL (0.1-1.30); MONOCYTES % (AUTO) 14.1 % (2.0-12.0); NEUTROPHILS # (AUTO) 6.4 K/uL (1.8-8.9); NEUTROPHILS % (AUTO) 76.1 % (43.0-81.0); PLATELET COUNT (AUTO) 151 K/uL (150-450); RED BLOOD CELL COUNT(AUTO) 5.36 MIL/uL (4.5-6.0); WHITE BLOOD COUNT (AUTO) 8.4 K/uL (4.3-11.0)
[2023-07-28 06:54] LABS: CALCIUM, SERUM 8.5 mg/dL (8.5-10.1); CREATININE 0.9 mg/dL (0.6-1.3); MAGNESIUM 2.3 mg/dL (1.8-2.4); PHOSPHORUS 2.9 mg/dL (2.5-4.9); POTASSIUM 4.6 mmol/L (3.5-5.1)
[2023-07-28 08:00] VITALS: BP 169/86; TEMP 97.5; O2SAT 95
[2023-07-28] MEDS: ENSURE ENLIVE CHOC 237 ML CAN PO SCH (08:56)
[2023-07-28] MEDS: PROSOURCE / PROSTAT (PYXIS) 30 ML UDC PO SCH (08:56)
[2023-07-28] MEDS ORDERED: ASCORBIC ACID 500 MG TABLET PO SCH (09:00)
[2023-07-28] MEDS ORDERED: ZINC SULFATE 220 MG CAPSULE PO SCH (09:00)
[2023-07-28] MEDS ORDERED: MULTIVITAMIN/LUTEIN/MINERALS 1 TAB PO SCH (09:00)
[2023-07-28] MEDS ORDERED: DEXA4TAB PO (09:31)
[2023-07-28] MEDS: dexaMETHasone SOD PHOSPHATE 10 MG/ML VIAL IV SCH (09:46)
[2023-07-28] MEDS: DIVALPROEX SODIUM 125 MG CAP.SPRINK PO SCH (09:46)
[2023-07-28] MEDS: OLANZAPINE ZYDIS 5 MG TAB.RAPDIS PO SCH (09:46)
[2023-07-28] MEDS: MEMANTINE HCL 5 MG TABLET PO SCH (09:46)
[2023-07-28] MEDS: ENOXAPARIN SODIUM 40 MG/0.4 ML DISP.SYRIN SQ SCH (09:56)
[2023-07-28] MEDS: CLOTRIMAZOLE 1% 15 GM TUBE TP SCH (10:34)
[2023-07-28] MEDS ORDERED: CEFEPIME 2 GM in IV D5W 100 ML IV SCH (13:00)
[2023-07-28 13:22] VITALS: BP 160/105
== END 2023-07-28 13:45 | DRG 177 ==
LOC: ER 03:25 → UNDOADMIN 11:29 → MEDSG1 11:29 → ER 11:46 → MEDSG1 11:53
PROVIDERS: ADMIT Internal Medicine; ATTEND Internal Medicine
DX: U07.1 COVID-19 (principal); G92.8 Other toxic encephalopathy; J12.82 Pneumonia due to coronavirus disease 2019; J96.01 Acute respiratory failure with hypoxia; J15.6 Pneumonia due to other Gram-negative bacteria; J69.0 Pneumonitis due to inhalation of food and vomit; N17.9 Acute kidney failure, unspecified; J44.0 Chronic obstructive pulmonary disease with (acute) lower respiratory infection; F03.918 Unspecified dementia, unspecified severity, with other behavioral disturbance; F03.90 Unspecified dementia, unspecified severity, without behavioral disturbance, psychotic disturbance, mood disturbance, and anxiety; E86.0 Dehydration; I10 Essential (primary) hypertension; F29 Unspecified psychosis not due to a substance or known physiological condition
CPT/HCPCS: 36415; 70450-TC; 71045-TC; 71250-TC; 80048-TC; 80053-TC; 80076-TC; 80164-TC; 80202-TC; 81001; 83735-TC; 84100-TC; 85025-TC; 85378-TC; 86140-TC; 87040-TC; 92526; 92611-TC; 93970-TC; 97112-TC; 97116-TC; 97530-TC; A4223; C9803; G0378; G0480; J0360; J0692; J1100; J1650; J2060; J2270; J3370; J7030; J7050; J7060